=== PATIENT | male | born 1945 | race Caucasian/White ===

== ENCOUNTER → 2020-11-29 | Outpatient (CLI) | payer MEDICARE, OTHER ==
[~2020-11-29] MED LIST: ASPIR-LOW81 MG PO; AUGMENTIN 875-1 EACH PO; BENADRYL ALLERG25 MG PO; CIPRO500 MG PO; CYCLOBENZAPRINE10 MG PO; DITROPAN XL10 MG PO; ELIQUIS 5 MG TAB5 MG PO; FERROUS SULFAT325 M2 PO; GABAPENTIN100 MG PO; GABAPENTIN800 MG PO; ICAPS MV TABLE1 EACH PO; LISINOPRIL-HCT1 EACH PO; LOPRESSOR 25 MG25 MG PO; MIRALAX 119 GR119 GM GT; MIRTAZAPINE7.5 MG PO; OXYBUTYNIN CHLO10 MG PO; PERCOCET 5/325 T1 EA PO; SANTYL OINT 3030 GM TP; STOOL SOFTENER PO; VITAMIN B-121000 MC3 PO; VITAMIN B-121000 MCG PO; VITAMIN C500 M4 PO; VOLTAREN EC 7575 MG PO; ZANAFLEX4 M1 PO; ZINC SULFATE220 MG PO; ZOCOR20 MG PO; ZOFRAN4 MG PO; ZOLOFT100 MG PO
== END ==
LOC: WCC 12:44
DX: L89.314 Pressure ulcer of right buttock, stage 4 (principal); L89.322 Pressure ulcer of left buttock, stage 2; G82.21 Paraplegia, complete; G60.0 Hereditary motor and sensory neuropathy; F17.200 Nicotine dependence, unspecified, uncomplicated

== ENCOUNTER → 2020-12-13 | Outpatient (CLI) | payer MEDICARE, OTHER | LOC: WCC 13:00 | PROC: 0JB90ZZ Excision of Buttock Subcutaneous Tissue and Fascia, Open Approach (ICD-10-PCS; principal; 2020-12-13) | DX: L89.314 Pressure ulcer of right buttock, stage 4 (principal); L89.324 Pressure ulcer of left buttock, stage 4; G60.0 Hereditary motor and sensory neuropathy; G82.21 Paraplegia, complete; F17.200 Nicotine dependence, unspecified, uncomplicated; L89.894 Pressure ulcer of other site, stage 4; Z88.5 Allergy status to narcotic agent; Z88.8 Allergy status to other drugs, medicaments and biological substances; Z79.899 Other long term (current) drug therapy ==

== ENCOUNTER → 2021-01-17 | Outpatient (CLI) | payer MEDICARE, OTHER | LOC: WCC 09:28 | PROC: 0KBV0ZZ Excision of Right Foot Muscle, Open Approach (ICD-10-PCS; principal; 2021-01-17) | PROC: 0KBQ0ZZ Excision of Right Upper Leg Muscle, Open Approach (ICD-10-PCS; 2021-01-17) | DX: I96 Gangrene, not elsewhere classified (principal); L89.314 Pressure ulcer of right buttock, stage 4; L89.614 Pressure ulcer of right heel, stage 4; L89.894 Pressure ulcer of other site, stage 4; L89.322 Pressure ulcer of left buttock, stage 2; L89.212 Pressure ulcer of right hip, stage 2; H26.9 Unspecified cataract; I10 Essential (primary) hypertension; G82.21 Paraplegia, complete; G60.0 Hereditary motor and sensory neuropathy; F17.200 Nicotine dependence, unspecified, uncomplicated; Z88.5 Allergy status to narcotic agent; Z79.899 Other long term (current) drug therapy ==

== ENCOUNTER → 2021-01-31 | Outpatient (CLI) | payer MEDICARE, OTHER | LOC: WCC 12:59 | DX: L89.314 Pressure ulcer of right buttock, stage 4 (principal); L89.324 Pressure ulcer of left buttock, stage 4; L89.894 Pressure ulcer of other site, stage 4; L89.892 Pressure ulcer of other site, stage 2; G60.0 Hereditary motor and sensory neuropathy; G82.21 Paraplegia, complete; F17.200 Nicotine dependence, unspecified, uncomplicated; Z93.3 Colostomy status; Z88.5 Allergy status to narcotic agent; Z79.899 Other long term (current) drug therapy ==

== ENCOUNTER → 2021-02-14 | Outpatient (CLI) | payer MEDICARE, OTHER | LOC: WCC 13:00 | PROC: 0QB10ZZ Excision of Sacrum, Open Approach (ICD-10-PCS; principal; 2021-02-14) | PROC: 0KBQ0ZZ Excision of Right Upper Leg Muscle, Open Approach (ICD-10-PCS; 2021-02-14) | DX: I96 Gangrene, not elsewhere classified (principal); L89.314 Pressure ulcer of right buttock, stage 4; L89.322 Pressure ulcer of left buttock, stage 2; L89.614 Pressure ulcer of right heel, stage 4; L89.892 Pressure ulcer of other site, stage 2; G60.0 Hereditary motor and sensory neuropathy; G82.21 Paraplegia, complete; I10 Essential (primary) hypertension; H26.9 Unspecified cataract; F17.200 Nicotine dependence, unspecified, uncomplicated; Z88.5 Allergy status to narcotic agent; Z79.899 Other long term (current) drug therapy ==

== ENCOUNTER → 2021-02-28 | Outpatient (CLI) | payer MEDICARE, OTHER | LOC: WCC 09:19 | PROC: 0JBL0ZZ Excision of Right Upper Leg Subcutaneous Tissue and Fascia, Open Approach (ICD-10-PCS; principal; 2021-02-28) | PROC: 0KBV0ZZ Excision of Right Foot Muscle, Open Approach (ICD-10-PCS; 2021-02-28) | PROC: 0KBN0ZZ Excision of Right Hip Muscle, Open Approach (ICD-10-PCS; 2021-02-28) | PROC: 0KBP0ZZ Excision of Left Hip Muscle, Open Approach (ICD-10-PCS; 2021-02-28) | DX: I96 Gangrene, not elsewhere classified (principal); L89.314 Pressure ulcer of right buttock, stage 4; L89.324 Pressure ulcer of left buttock, stage 4; L89.614 Pressure ulcer of right heel, stage 4; L89.892 Pressure ulcer of other site, stage 2; G60.0 Hereditary motor and sensory neuropathy; G82.21 Paraplegia, complete; F17.200 Nicotine dependence, unspecified, uncomplicated; I10 Essential (primary) hypertension; H26.9 Unspecified cataract; Z79.899 Other long term (current) drug therapy; Z88.5 Allergy status to narcotic agent ==

== ENCOUNTER → 2021-03-28 | Outpatient (CLI) | payer MEDICARE, OTHER | LOC: WCC 13:15 | DX: L89.224 Pressure ulcer of left hip, stage 4 (principal); L89.214 Pressure ulcer of right hip, stage 4; L89.894 Pressure ulcer of other site, stage 4; G60.0 Hereditary motor and sensory neuropathy; G82.21 Paraplegia, complete; F17.200 Nicotine dependence, unspecified, uncomplicated; Z88.5 Allergy status to narcotic agent; Z79.899 Other long term (current) drug therapy | CPT/HCPCS: 87070; 87077; 87186; 87205; J0696 ==

== ENCOUNTER → 2021-04-11 | Outpatient (CLI) | payer MEDICARE, OTHER | LOC: WCC 13:02 | DX: L89.314 Pressure ulcer of right buttock, stage 4 (principal); L89.322 Pressure ulcer of left buttock, stage 2; L89.894 Pressure ulcer of other site, stage 4; G60.0 Hereditary motor and sensory neuropathy; G82.21 Paraplegia, complete; F17.200 Nicotine dependence, unspecified, uncomplicated | CPT/HCPCS: 87070; 87077; 87186; 97597; 97598; J0696 ==

== ENCOUNTER → 2021-05-01 | Outpatient (CLI) | payer MEDICARE, OTHER | LOC: WCC 11:00 | DX: L89.214 Pressure ulcer of right hip, stage 4 (principal); L89.322 Pressure ulcer of left buttock, stage 2; G60.0 Hereditary motor and sensory neuropathy; G82.21 Paraplegia, complete; F17.200 Nicotine dependence, unspecified, uncomplicated; E43 Unspecified severe protein-calorie malnutrition; Z68.1 Body mass index [BMI] 19.9 or less, adult; Z93.3 Colostomy status; Z88.5 Allergy status to narcotic agent; Z79.899 Other long term (current) drug therapy ==

== ENCOUNTER → 2021-05-16 | Outpatient (CLI) | payer MEDICARE, OTHER | LOC: WCC 13:00 | DX: L89.224 Pressure ulcer of left hip, stage 4 (principal); L89.214 Pressure ulcer of right hip, stage 4; G60.0 Hereditary motor and sensory neuropathy; G82.21 Paraplegia, complete; F17.200 Nicotine dependence, unspecified, uncomplicated; E43 Unspecified severe protein-calorie malnutrition; Z88.5 Allergy status to narcotic agent; Z79.899 Other long term (current) drug therapy ==

== ENCOUNTER → 2021-05-30 | Outpatient (CLI) | payer MEDICARE, OTHER | LOC: WCC 13:59 | DX: L89.224 Pressure ulcer of left hip, stage 4 (principal); L89.214 Pressure ulcer of right hip, stage 4; G60.0 Hereditary motor and sensory neuropathy; G82.21 Paraplegia, complete; E43 Unspecified severe protein-calorie malnutrition; F17.200 Nicotine dependence, unspecified, uncomplicated; Z88.5 Allergy status to narcotic agent; Z79.899 Other long term (current) drug therapy ==

== ENCOUNTER → 2021-06-20 | Outpatient (CLI) | payer MEDICARE, OTHER | LOC: WCC 10:12 | DX: L89.224 Pressure ulcer of left hip, stage 4 (principal); L89.214 Pressure ulcer of right hip, stage 4; G60.0 Hereditary motor and sensory neuropathy; G82.21 Paraplegia, complete; F17.200 Nicotine dependence, unspecified, uncomplicated; E43 Unspecified severe protein-calorie malnutrition; Z88.5 Allergy status to narcotic agent; Z79.899 Other long term (current) drug therapy ==

== ENCOUNTER → 2021-07-04 | Outpatient (CLI) | payer MEDICARE, OTHER | LOC: WCC 12:58 | DX: L89.314 Pressure ulcer of right buttock, stage 4 (principal); L89.324 Pressure ulcer of left buttock, stage 4; E43 Unspecified severe protein-calorie malnutrition; F17.200 Nicotine dependence, unspecified, uncomplicated; G60.0 Hereditary motor and sensory neuropathy; G82.21 Paraplegia, complete; Z88.5 Allergy status to narcotic agent ==

== ENCOUNTER → 2021-07-18 | Outpatient (CLI) | payer MEDICARE, OTHER | LOC: WCC 13:15 | PROC: 0KBP0ZZ Excision of Left Hip Muscle, Open Approach (ICD-10-PCS; principal; 2021-07-18) | PROC: 0KBN0ZZ Excision of Right Hip Muscle, Open Approach (ICD-10-PCS; 2021-07-18) | DX: I96 Gangrene, not elsewhere classified (principal); L89.154 Pressure ulcer of sacral region, stage 4; G60.0 Hereditary motor and sensory neuropathy; G82.21 Paraplegia, complete; F17.200 Nicotine dependence, unspecified, uncomplicated; I10 Essential (primary) hypertension; E46 Unspecified protein-calorie malnutrition; Z68.1 Body mass index [BMI] 19.9 or less, adult; Z88.5 Allergy status to narcotic agent; Z79.899 Other long term (current) drug therapy ==

== ENCOUNTER → 2021-08-15 | Outpatient (CLI) | payer MEDICARE, OTHER | LOC: WCC 10:05 | DX: L89.224 Pressure ulcer of left hip, stage 4 (principal); L89.214 Pressure ulcer of right hip, stage 4; L89.893 Pressure ulcer of other site, stage 3; G60.0 Hereditary motor and sensory neuropathy; G82.21 Paraplegia, complete; F17.200 Nicotine dependence, unspecified, uncomplicated; E43 Unspecified severe protein-calorie malnutrition; Z88.5 Allergy status to narcotic agent; Z79.899 Other long term (current) drug therapy | CPT/HCPCS: 87070; 87077; 87186; 87205 ==

== ENCOUNTER → 2021-08-29 | Outpatient (CLI) | payer MEDICARE, OTHER | LOC: WCC 11:33 | DX: L89.224 Pressure ulcer of left hip, stage 4 (principal); L89.214 Pressure ulcer of right hip, stage 4; G60.0 Hereditary motor and sensory neuropathy; G82.21 Paraplegia, complete; F17.200 Nicotine dependence, unspecified, uncomplicated; E43 Unspecified severe protein-calorie malnutrition; Z88.5 Allergy status to narcotic agent; Z79.2 Long term (current) use of antibiotics; Z79.899 Other long term (current) drug therapy ==

== ENCOUNTER → 2021-09-19 | Outpatient (CLI) | payer MEDICARE, OTHER | END | disposition home or self-care (01) | LOC: WCC 11:56 | PROC: 0JB70ZZ Excision of Back Subcutaneous Tissue and Fascia, Open Approach (ICD-10-PCS; principal; 2021-09-19) | DX: L89.154 Pressure ulcer of sacral region, stage 4 (principal); L89.893 Pressure ulcer of other site, stage 3; L89.314 Pressure ulcer of right buttock, stage 4; L89.322 Pressure ulcer of left buttock, stage 2; G60.0 Hereditary motor and sensory neuropathy; G82.21 Paraplegia, complete; F17.200 Nicotine dependence, unspecified, uncomplicated; E43 Unspecified severe protein-calorie malnutrition; Z68.1 Body mass index [BMI] 19.9 or less, adult; Z79.899 Other long term (current) drug therapy; Z88.5 Allergy status to narcotic agent; I10 Essential (primary) hypertension; H26.9 Unspecified cataract ==

== ENCOUNTER → 2021-10-03 | Outpatient (CLI) | payer MEDICARE, OTHER | LOC: WCC 08:30 | DX: L89.224 Pressure ulcer of left hip, stage 4 (principal); L89.214 Pressure ulcer of right hip, stage 4; L89.893 Pressure ulcer of other site, stage 3; L89.220 Pressure ulcer of left hip, unstageable; L89.892 Pressure ulcer of other site, stage 2; G60.0 Hereditary motor and sensory neuropathy; G82.21 Paraplegia, complete; F17.200 Nicotine dependence, unspecified, uncomplicated; E43 Unspecified severe protein-calorie malnutrition; Z88.5 Allergy status to narcotic agent; Z79.899 Other long term (current) drug therapy ==

== ENCOUNTER → 2021-10-24 | Outpatient (CLI) | payer MEDICARE, OTHER | END | disposition home or self-care (01) | LOC: WCC 12:58 | PROC: 0JBQ0ZZ Excision of Right Foot Subcutaneous Tissue and Fascia, Open Approach (ICD-10-PCS; principal; 2021-10-24) | PROC: 0JBR0ZZ Excision of Left Foot Subcutaneous Tissue and Fascia, Open Approach (ICD-10-PCS; principal; 2021-10-24) | PROC: 0JB70ZZ Excision of Back Subcutaneous Tissue and Fascia, Open Approach (ICD-10-PCS; principal; 2021-10-24) | PROC: 0JBM0ZZ Excision of Left Upper Leg Subcutaneous Tissue and Fascia, Open Approach (ICD-10-PCS; principal; 2021-10-24) | DX: L89.154 Pressure ulcer of sacral region, stage 4 (principal); L89.314 Pressure ulcer of right buttock, stage 4; L89.322 Pressure ulcer of left buttock, stage 2; L89.893 Pressure ulcer of other site, stage 3; L89.892 Pressure ulcer of other site, stage 2; L89.220 Pressure ulcer of left hip, unstageable; G60.0 Hereditary motor and sensory neuropathy; G82.21 Paraplegia, complete; I10 Essential (primary) hypertension; F17.200 Nicotine dependence, unspecified, uncomplicated; E43 Unspecified severe protein-calorie malnutrition; Z68.1 Body mass index [BMI] 19.9 or less, adult; Z79.899 Other long term (current) drug therapy; Z88.5 Allergy status to narcotic agent ==

== ENCOUNTER → 2021-11-12 | Outpatient (CLI) | payer MEDICARE, OTHER | LOC: WCC 09:23 | DX: L89.324 Pressure ulcer of left buttock, stage 4 (principal); L89.314 Pressure ulcer of right buttock, stage 4; L89.893 Pressure ulcer of other site, stage 3; L89.220 Pressure ulcer of left hip, unstageable; L89.892 Pressure ulcer of other site, stage 2; G60.0 Hereditary motor and sensory neuropathy; G82.21 Paraplegia, complete; F17.200 Nicotine dependence, unspecified, uncomplicated; E43 Unspecified severe protein-calorie malnutrition; Z88.5 Allergy status to narcotic agent; Z68.1 Body mass index [BMI] 19.9 or less, adult | CPT/HCPCS: 87070; 87077; 87186; 87205 ==

== ENCOUNTER → 2021-12-05 | Outpatient (CLI) | payer MEDICARE, OTHER | LOC: WCC 09:35 | DX: L89.224 Pressure ulcer of left hip, stage 4 (principal); L89.214 Pressure ulcer of right hip, stage 4; G60.0 Hereditary motor and sensory neuropathy; G82.21 Paraplegia, complete; F17.200 Nicotine dependence, unspecified, uncomplicated; E43 Unspecified severe protein-calorie malnutrition; Z88.5 Allergy status to narcotic agent; Z79.899 Other long term (current) drug therapy | CPT/HCPCS: 87070; 87077; 87186; 87205 ==